=== PATIENT | female | born 1965 | race Caucasian/White ===

== ENCOUNTER 2017-07-05 12:11 | Emergency (ER) | payer BC, OTHER ==
--- NOTE | 2017-07-05 14:42 | RAD ---
INDICATION: Fall, head injury. COMPARISON: There are no prior studies available for comparison. TECHNIQUE: Contiguous axial sections of the brain were obtained from the skull base to the vertex without contrast. FINDINGS: The ventricles, cisterns and sulci are within normal limits. There is a small area of decreased density in the right caudate nucleus head. No other focal lateral mallear mass effect are seen. There is no evidence for hemorrhage. No significant focal osseous abnormality is seen. The visualized portion of the paranasal sinuses and mastoid air cells appear clear. IMPRESSION: 1. NO EVIDENCE FOR ACUTE INTRACRANIAL ABNORMALITY. 2. 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
--- NOTE | 2017-07-05 14:49 | RAD ---
HISTORY: Fall. No other history is provided COMPARISONS: None TECHNIQUE: Multiple contiguous axial CT scans were obtained of the cervical spine without intravenous contrast, with coronal and sagittal multiplanar reformations. FINDINGS: BRAIN: The visualized brain is unremarkable CENTRAL CANAL: Evaluation of the central canal is limited on CT technique; however, there is no obvious canalicular mass or epidural hemorrhage. ALIGNMENT: There is straightening of the cervical lordosis. There is trace anterolisthesis of C4 on C5. VERTEBRAL BODIES: There is anterolateral marginal osteophyte formation most pronounced at C5-C6 and C6-C7. There is no displaced fracture. JOINTS: There is uncovertebral and facet osteoarthritis. MUSCULATURE: Unremarkable INTERVERTEBRAL DISCS: There is diffuse loss of intervertebral disc height. AXIAL IMAGES: C2-C3: There is no osseous neural foraminal narrowing or central canal stenosis. C3-C4: There is no osseous neural foraminal narrowing or central canal stenosis. C4-C5: There is moderate left neural foraminal narrowing secondary to uncovertebral and facet atrophy. There is no osseous neural foraminal area. C5-C6: There is moderate right and mild left neuroforaminal narrowing. There is no osseous central canal stenosis. C6-C7: There is mild bilateral neural foraminal narrowing. There is no osseous central canal stenosis. C7-T1: There is no osseous neural foraminal narrowing or central canal stenosis. SOFT TISSUES: The visualized soft tissues of the neck are unremarkable. The prevertebral fat stripe is preserved. OTHER: None. IMPRESSION: DEGENERATIVE DISC DISEASE AND OSTEOARTHRITIS NO ACUTE OSSEOUS INJURY TO THE CERVICAL SPINE.
--- NOTE | 2017-07-05 14:53 | RAD ---
HISTORY: Fall, back pain COMPARISONS: None TECHNIQUE: Multiple contiguous axial CT scans were obtained of the thoracic spine without intravenous contrast, with coronal and sagittal multiplanar reformations. FINDINGS: SPINAL CANAL: Evaluation of the central canal is limited on CT technique; however, there is no obvious canalicular mass or epidural hemorrhage. ALIGNMENT: There is mild extra scoliotic curvature of the spine. VERTEBRAL BODIES: The vertebral bodies are preserved in height. The bones are normal in attenuation. There is multilevel anterolateral marginal osteophyte formation. JOINTS: There is mild osteoarthritis of the costovertebral articulations. MUSCULATURE: Unremarkable INTERVERTEBRAL DISCS: There is diffuse loss of intervertebral disc height throughout the spine. AXIAL IMAGES: There is no osseous central canal stenosis or neuroforaminal narrowing. SOFT TISSUES: The visualized soft tissues of the chest and abdomen are unremarkable. OTHER: None IMPRESSION: NO ACUTE OSSEOUS INJURY TO THE THORACIC SPINE
--- NOTE | 2017-07-05 14:54 | RAD ---
HISTORY: Fall, back pain COMPARISONS: None TECHNIQUE: Multiple contiguous axial CT scans were obtained of the lumbar spine without intravenous contrast, with coronal and sagittal multiplanar reformations. FINDINGS: SPINAL CANAL: Evaluation of the central canal is limited on CT technique; however, there is no obvious canalicular mass or epidural hemorrhage. ALIGNMENT: The alignment is normal. VERTEBRAL BODIES: There is anterolateral marginal osteophyte formation at L2-L3 and L5-S1. There are mild reactive end plate changes. JOINTS: There is mild facet osteoarthritis. MUSCULATURE: Unremarkable INTERVERTEBRAL DISCS: There is diffuse loss of intervertebral disc height throughout the spine. AXIAL IMAGES: T12-L1: There is no osseous neural foraminal narrowing or central canal stenosis. L1-L2: There is no osseous neural foraminal narrowing or central canal stenosis. L2-L3: There is no osseous neural foraminal narrowing or central canal stenosis. L3-L4: There is no osseous neural foraminal narrowing or central canal stenosis. L4-L5: There is a broad-based disc bulge. There is no osseous neural foraminal or central canal stenosis. L5-S1: There is marginal osteophyte formation at the neural foramina bilaterally with a mobile disc bulge and bilateral facet hypertrophy. There is moderate right and severe left neural foraminal narrowing. There is no osseous central canal stenosis. SOFT TISSUES: The visualized soft tissues of the abdomen are unremarkable. OTHER: None IMPRESSION: 1. DEGENERATIVE DISC DISEASE AND OSTEOARTHRITIS MOST PRONOUNCED AT L5-S1. 2. NO ACUTE OSSEOUS INJURY TO THE LUMBAR SPINE.
[2017-07-05 15:46] VITALS: BP 124/82
--- NOTE | 2017-07-05 16:00 | ED ---
Back Pain - HPI Summary HPI Summary: Patient is a 52-year-old female presenting to the ED with the chief complaint of low back pain and dizziness. She states she sustained an injury 2 days ago after falling from a forklift and landing directly onto her lumbar spine and hitting her head. She was seen at [facility] who stapled her head, but did not obtain a CT scan. At the time, she denied any pain to her back. She states on the way home from the hospital she began to feel pain in her back. She arrives on this date to further evaluate the pain in her back and endorses a large amount of ecchymosis to the area. She has not taken anything for relief. She also endorses dizziness 2 days, only at bedtime when she is trying to sleep. This is new since the head injury. She denies any confusion, memory loss, photophobia, nausea or other migrainous symptoms. Symptoms are aggravated with lying flat and attempting to sleep, alleviated with nothing. - History of Current Complaint Chief Complaint: EDBackInjuryPagerald Stated Complaint: FALL/BRUISING ON BACK Time Seen by Provider: 07/05/17 13:02 Hx Obtained From: Patient Onset/Duration: Sudden Onset Onset/Duration: Started Days Ago Timing: Constant Back Pain Location: Is Discrete @ - Low back, right-sided parietal scalp Pain Intensity: 2 Pain Scale Used: 0-10 Numeric Character: Aching, Throbbing Aggravating Symptom(s): Movement, Lifting, Bending Alleviating Symptom(s): Rest, Position, Heat Associated Signs And Symptoms: Positive: Swelling, Bruising. Negative: Redness , Fever, Weakness, Numbness, Tingling, Abdominal Pain, Flank Pain, Bladder Incontinence, Bowel Incontinence, Weight Loss, Pain with Weight Bearing - Risk Factors AAA Risk Factors: Negative TAD Risk Factors: Negative Cauda Equina Risk Factors: Negative Epidural Abscess Risk Factors: Negative - Allergies/Home Medications Allergies/Adverse Reactions: Allergies Allergy/AdvReac Type Severity Reaction Status Date / Time No Known Allergies Allergy Verified 07/05/17 12:18 Home Medications: Home Medications Dextroamphetamine/Amphetamine [Amphetamine/Dextroampheta 30 mg-] 30 mg PO DAILY 07/05/17 [History Confirmed 07/05/17] Lisinopril [Lisinopril] 20 mg PO DAILY 07/05/17 [History Confirmed 07/05/17] PMH/Surg Hx/FS Hx/Imm Hx Previously Healthy: Yes - Immunization History Hx Pertussis Vaccination: No Immunizations Up to Date: Unable to Obtain/Confirm Infectious Disease History: No Infectious Disease History: Denies: Traveled Outside the [place] in Last 30 Days - Social History Occupation: Employed Full-time Lives: With Family Alcohol Use: Rare Hx Substance Use: No Substance Use Type: Reports: None Hx Tobacco Use: No Smoking Status (MU): Never Smoked Tobacco Review of Systems Constitutional: Negative Negative: Fever, Chills, Fatigue, Skin Diaphoresis Negative: Photophobia, Blurred Vision Negative: Palpitations, Chest Pain Negative: Shortness Of Breath, Cough Negative: Abdominal Pain, Vomiting, Diarrhea, Nausea Genitourinary: Negative Positive: no symptoms reported, see HPI Positive: Myalgia - bilateral lower back pain Positive: Bruising - ecchymosis to the lower back Neurological: Other - dizziness All Other Systems Reviewed And Are Negative: Yes Physical Exam Triage Information Reviewed: Yes Vital Signs On Initial Exam: Initial Vitals Temp Pulse Resp BP Pulse Ox 98.2 F 61 16 119/88 98 07/05/17 12:14 07/05/17 12:14 07/05/17 12:14 07/05/17 12:14 07/05/17 12:14 Vital Signs Reviewed: Yes Appearance: Positive: Well-Appearing, Well-Nourished Skin: Positive: Warm, Skin Color Reflects Adequate Perfusion, Other - Ecchymosis to the bilateral lower back; Jenn already placed to the right parietal area of the scalp Head/Face: Positive: Normal Head/Face Inspection - Jenn are placed to the right parietal area Eyes: Positive: EOMI, HAN, Conjunctiva Clear Neck: Positive: Supple, No Lymphadenopathy Respiratory/Lung Sounds: Positive: Clear to Auscultation, Breath Sounds Present Cardiovascular: Positive: RRR, Pulses are Symmetrical in both Upper and Lower Extremities Musculoskeletal: Positive: Normal, Strength/ROM Intact, Other - Full range of motion, rotation at the hips without pain. Negative: Limited @, Interruption @ , Yuli Sign Left, Yuli Sign Right, Edema Left, Edema Right Neurological: Positive: Normal, Sensory/Motor Intact, Alert, Oriented to Person Place, Time, CN Intact II-III, Normal Gait, Facial Symmetry. Negative: Facial Droop, Slurred Speech, Heel to Toe, Finger to Nose, Ataxic Gait Psychiatric: Positive: Normal, Affect/Mood Appropriate AVPU Assessment: Alert Diagnostics - Vital Signs Vital Signs Temp Pulse Resp BP Pulse Ox 07/05/17 15:45 98 F 67 16 124/82 100 07/05/17 12:14 98.2 F 61 16 119/88 98 - Laboratory Lab Statement: Any lab studies that have been ordered have been reviewed, and results considered in the medical decision making process. Back Pain Course/Dx - Course Course Of Treatment: During the course of treatment the patient is evaluated for multiple trauma. She is evaluated for right-sided head trauma. Murdock are currently into the right parietal scalp. The lower lumbar spine is with hematoma and ecchymosis diffusely throughout with inflammation surrounding. Tenderness to the bilateral lower back without tenderness to the spine. Full range of motion and strength to the lower extremities. Pulses +2 intact bilaterally. No edema in the bilateral extremities. She denies any confusion, memory last, visual disturbances or changes, however endorses some dizziness with lying flat. CT brain, cervical, thoracic, and lumbar spine obtained. Spine CTs show no acute findings, however brain CT shows: IMPRESSION: 1. NO EVIDENCE FOR ACUTE INTRACRANIAL ABNORMALITY. 2. 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 I discussed these findings with the patient and she agrees to follow up with her PCP regarding the CT brain findings. Vital signs are stable upon discharge. She is given meclizine and tramadol for pain relief and dizziness and will follow-up with her doctor this week. - Diagnoses Differential Diagnosis/HQI/PQRI: Positive: Fracture, Strain, Sprain, Other - Hematoma, contusion Provider Diagnoses: Hematoma, Head injury Images - Images Full Body (No Head): 1 - Ecchymosis Discharge - Sign-Out/Discharge Documenting (check all that apply): Discharge/Admit/Transfer - Discharge Plan Condition: Stable Disposition: HOME Prescriptions: Meclizine TAB* [Antivert 12.5 TAB*] 12.5 mg PO TID PRN #12 tab MDD 3 PRN Reason: Dizziness traMADol TAB* [Ultram*] 50 mg PO Q8H PRN #12 tab MDD 3 PRN Reason: Pain Patient Education Materials: Hematoma (ED) Forms: *Work Release Referrals: Cameron Peres MD [Primary Care Provider] - Additional Instructions: Please follow up with your PCP regarding your findings on CT exam Ibuprofen 600mng three times daily for inflammation Tramadol 50mg up to three times daily for pain - take on opposite schedule of ibuprofen Moist heat to the area - Billing Disposition and Condition Condition: STABLE Disposition: HOME
== END 2017-07-05 15:45 | disposition home or self-care (01) ==
LOC: ED 12:11
DX: M54.5 Low back pain (principal); S09.90XA Unspecified injury of head, initial encounter; S30.0XXA Contusion of lower back and pelvis, initial encounter; W17.89XA Other fall from one level to another, initial encounter; Y92.9 Unspecified place or not applicable
CPT/HCPCS: 70450; 72125; 72128; 72131; 99282

== ENCOUNTER 2018-12-24 20:07 | Emergency (ER) | payer OTHER ==
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
[2018-12-24 23:10] VITALS: BP 116/73
--- NOTE | 2018-12-25 13:05 | ED ---
Imaging and Labs Follow Up Follow Up Type: Imaging Imaging Result: Questionable hill sachs fx Patient Communication/Plan: Pt. seen for traumatic shoulder injury. I called and spoke with pt. today at 1250. She has an apt. with ortho tomorrow. Provider Diagnoses: Rotator cuff strain, Contusion of right arm
== END 2018-12-24 23:07 | disposition home or self-care (01) ==
LOC: ED 20:07
DX: S46.011A Strain of muscle(s) and tendon(s) of the rotator cuff of right shoulder, initial encounter (principal); S40.021A Contusion of right upper arm, initial encounter; I10 Essential (primary) hypertension; V86.59XA Driver of other special all-terrain or other off-road motor vehicle injured in nontraffic accident, initial encounter; Y92.007 Garden or yard of unspecified non-institutional (private) residence as the place of occurrence of the external cause
CPT/HCPCS: 99282

== ENCOUNTER 2019-02-07 08:25 | Day surgery (SDC) | payer OTHER ==
[~2019-02-07 08:25] MED LIST: Buffered Lidocaine 1% SYRIN* 1 ML/SYRINGE INTRADERM ONE; Dexamethasone TAB* 4 MG PO ONE; DiMENhydriNATE IV* 50 MG/ML VIAL IV PUSH PRN; Famotidine IV* 10 MG/ML 2 ML (20 mg) IV ONE; HYDROmorphone INJ1* 1 MG/ML SYRINGE IV PRN; Lactated Ringers 1000 ML Bag* 1,000 ML IV SCH; Naloxone* 0.4 MG/ML 1 ML VIAL IV PRN; Ondansetron ODT TAB* 4 MG PO ONE; PROCHLORPERAZINE INJ 5 MG/ML 2 ML VIAL IV PRN; Scopolamine 1.5 mg* PATCH TRANSDERM PRN; fentaNYL* 50 MCG/ML 2 ML VIAL (100 MCG VIAL) IV PRN; oxyCODONE TAB* 5 MG TAB PO PRN
[2019-02-07] MEDS ORDERED: Dexamethasone IV* 4 MG/ML 1 ML (4 MG) ONE (08:39)
[2019-02-07] MEDS ORDERED: Ondansetron ODT TAB* 4 MG ONE (08:40)
[2019-02-07] MEDS ORDERED: ceFAZolin 2 GM in NS PREMIX(*) 2 GM/100 ML BAG IVPB ONE (08:40)
[2019-02-07] MEDS ORDERED: Famotidine IV* 10 MG/ML 2 ML (20 mg) ONE (08:40)
[2019-02-07] MEDS ORDERED: KETAMINE HCL* 50 MG/ML 10 ML VIAL ONE (08:50)
[2019-02-07] MEDS ORDERED: fentaNYL* 50 MCG/ML 2 ML VIAL (100 MCG VIAL) ONE (08:50)
[2019-02-07] MEDS ORDERED: Midazolam* 1 MG/ML 5 ML VIAL (5 MG) ONE (08:50)
[2019-02-07] MEDS ORDERED: Dexamethasone TAB* 4 MG ONE (09:03)
[2019-02-07] MEDS ORDERED: Ropivacaine 0.2% * 2 MG/ML VIAL ONE ×2 (09:54→09:59)
[2019-02-07] MEDS ORDERED: Glycopyrrolate IV* 0.2 MG/ML 1 ML VIAL ONE (11:19)
[2019-02-07] MEDS ORDERED: Bupivacaine 0.25% SDV PF* 10 ML VIAL INJ ONE (11:19)
[2019-02-07] MEDS ORDERED: EPHEDrine (Pressors)* 50 MG/ML VIAL ONE (11:19)
[2019-02-07] MEDS ORDERED: Propofol* 10 MG/ML 20 ML BTL ONE (11:19)
[2019-02-07] MEDS ORDERED: Lidocaine 2% PF * 5 ML VIAL ONE (11:19)
[2019-02-07] MEDS ORDERED: Phenylephrine 40 MCG/ML SYRINGE ONE (11:22)
[2019-02-07 12:17] VITALS: BP 106/67
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
[2019-02-10] MEDS ORDERED: Scopolamine PATCH Remove* 1 NOTE MISC PATCH OFF ONE (05:56)
== END 2019-02-07 13:12 | disposition home or self-care (01) ==
LOC: OR 08:25
PROVIDERS: ATTEND Orthopaedic Surgery
DX: S46.011D Strain of muscle(s) and tendon(s) of the rotator cuff of right shoulder, subsequent encounter (principal); M75.41 Impingement syndrome of right shoulder; F17.210 Nicotine dependence, cigarettes, uncomplicated; V86.99XD Unspecified occupant of other special all-terrain or other off-road motor vehicle injured in nontraffic accident, subsequent encounter; Y92.9 Unspecified place or not applicable; G89.18 Other acute postprocedural pain
CPT/HCPCS: A9270-GY; C1713; J0690; J1100; J2250; J2704; J2795; J3010; J3490; J8540

== ENCOUNTER 2019-05-21 20:17 | Emergency (ER) | payer OTHER ==
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
[2019-05-21 21:10] LABS: ABS Eosinophils 0.1 10^3/ul (0-0.6); ABS Lymphocytes 0.9 10^3/ul (1.0-4.8); ABS Monocytes 0.8 10^3/ul (0-0.8); ABS Neutrophils 3.5 10^3/ul (1.5-7.7); Eosinophil % 1.7 %; Hematocrit 45 % (35-47); Hemoglobin 15.4 g/dL (12.0-16.0); Lymphocyte % 16.8 %; Mean Corpuscular HGB Conc 34 g/dL (31-36); Mean Corpuscular Hemoglobin 30 pg (27-31); Mean Corpuscular Volume 88 fL (80-97); Mean Platelet Volume 8.5 fL (7.4-10.4); Nucleated Red Blood Cells % 0.1; Platelet Count 262 10^3/uL (150-450); Red Blood Count 5.08 10^6 /uL (3.70-4.87); Red Cell Distribution Width 14 % (10-15); White Blood Count 5.3 10^3/uL (3.5-10.8)
[2019-05-21 21:28] LABS: Albumin 4.4 g/dL (3.2-5.2); Albumin/Globulin Ratio 1.6 (1-3); BUN/Creatinine Ratio 20.8 (8-20); C Reactive Protein 2.3 mg/L (<8.01); Calcium 10.4 mg/dL (8.6-10.3); EGFR African American 36.9 (>60); EGFR Non-African American 30.5 (>60); Globulin 2.7 g/dL (2-4); Potassium 2.9 mmol/L (3.5-5.0); Total Bilirubin 0.6 mg/dL (0.2-1.0); Total Protein 7.1 g/dL (6.4-8.9)
[2019-05-21] MEDS ORDERED: NS 0.9% 1000 ML** 1,000 ML IV ONE (23:55)
[2019-05-21] MEDS ORDERED: Pantoprazole IV* 40 MG IV ONE (23:56)
[2019-05-21] MEDS ORDERED: Metoclopramide IV* 5 MG/ML 2 ML VIAL IV SLOW PU ONE (23:56)
[2019-05-22 00:52] LABS: Urine Appearance Clear; Urine Bacteria 1+ (Absent); Urine Bilirubin Negative (Negative); Urine Blood 2+ (Negative); Urine Color Yellow; Urine Glucose Negative (Negative); Urine Ketones Negative (Negative); Urine Nitrite Negative (Negative); Urine Protein Negative (Negative); Urine Red Blood Cell 2+(6-10/hpf) (Absent); Urine Specific Gravity 1.011 (1.010-1.030); Urine Squamous Epithelial Cell Present (Absent); Urine Urobilinogen Negative (Negative); Urine White Blood Cell 1+(6-10/hpf) (Absent)
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
[2019-05-22] MEDS ORDERED: NS 0.9% 1000 ML** 1,000 ML IV ONE (01:42)
[2019-05-22] MEDS ORDERED: Potassium Chloride* LIQUID 20 MEQ/15 ML UDC PO ONE (01:42)
[2019-05-22] MEDS ORDERED: cefTRIAXone(*) 1 GM in NS 0.9% 50 ML* 50 ML IVPB ONE (02:14)
[2019-05-22] MEDS ORDERED: Iodixanol* (CONTRAST) 320 MG/ML 100 ML SDV IV ONE (02:48)
--- NOTE | 2019-05-22 04:51 | ED ---
Progress - Progress Note Progress Note: Patient is received as a sign-out from CALEB Luis at 0230 05/22/19 PA shift end pending CT Abd/Pel. CT abd/pel IMPRESSION: No acute findings. This report was reviewed by ED physician Patient was discharged to home with Dx of UTI and augmentin and reglan prescription. Home Medications Medication Instructions Recorded Confirmed Type Dextroamphetamine/Amphetamine 30 mg PO QAM 07/05/17 02/07/19 History [Amphetamine/Dextroampheta 30 mg-] Atorvastatin* [Lipitor*] 20 mg PO QAM 01/31/19 02/07/19 History Lisinopril/Hydrochlorothiazide 1 each PO QAM 01/31/19 02/07/19 History [Lisinopril-Hctz 20-12.5 mg Tab] Escitalopram Oxalate [Lexapro 10 10 mg PO QAM 02/06/19 02/07/19 History mg] Amoxicillin/Clavulanate TAB* 500 mg PO BID #10 tab 05/22/19 Rx [Augmentin TAB 500 mg*] Metoclopramide TAB* [Reglan TAB*] 10 mg PO Q6H #20 tab 05/22/19 Rx Re-Evaluation - Re-Evaluation First Eval Re-Evaluation Time: 02:01 Change: Improved Comment: nausea improved with reglan Course/Dx - Diagnoses Provider Diagnoses: Epigastric pain, Nausea, UTI (urinary tract infection) Discharge ED - Sign-Out/Discharge Documenting (check all that apply): Patient Departure - discharge - Discharge Plan Condition: Stable Disposition: HOME Prescriptions: Amoxicillin/Clavulanate TAB* [Augmentin TAB 500 mg*] 500 mg PO BID #10 tab Metoclopramide TAB* [Reglan TAB*] 10 mg PO Q6H #20 tab Patient Education Materials: Urinary Tract Infection in Women (ED) Referrals: Obey Simeon PA [Primary Care Provider] - 3 Days Additional Instructions: PLEASE RETURN TO ED FOR ANY NEW OR WORSENING SYMPTOMS. PLEASE FOLLOW UP WITH YOUR PRIMARY CARE PHYSICIAN WITHIN THREE DAYS. - Billing Disposition and Condition Condition: STABLE Disposition: Home - Attestation Statements Document Initiated by Scribe: Yes Documenting Scribe: PILAR JEFFERS Provider For Whom Scribe is Documenting (Include Credential): JESÚS REYNAGA MD Scribe Attestation: IPILAR, scribed for JESÚS REYNAGA MD on 05/22/19 at 0459. Scribe Documentation Reviewed: Yes Provider Attestation: The documentation as recorded by the scribe, PILAR JEFFERS accurately reflects the service I personally performed and the decisions made by me, JESÚS REYNAGA MD Status of Scribe Document: Viewed
[2019-05-22 05:16] VITALS: BP 113/71
== END 2019-05-22 05:16 | disposition home or self-care (01) ==
LOC: ED 20:17
DX: N39.0 Urinary tract infection, site not specified (principal); R10.13 Epigastric pain; R11.0 Nausea; I10 Essential (primary) hypertension; Z87.891 Personal history of nicotine dependence
CPT/HCPCS: 36415; 74177; 80053; 81003; 81015; 83605; 83690; 85025; 86140; 87086; 96361; 96374; 96375; 99283; A9270-GY; J0696; J2765; Q9967